=== PATIENT | male | born 1975 | race African-American/Black ===

== ENCOUNTER 2021-06-25 14:55 | Emergency (ER) | payer OTHER, MEDICAID ==
[~2021-06-25] VITALS: Ht 175.3 cm; Wt 145.0 kg
[~2021-06-25 14:55] MED LIST: ALBUTEROL INH; HYDR25TA
[2021-06-25 14:57] VITALS: BP 190/110
== END 2021-06-25 15:23 | disposition left against medical advice (07) ==
LOC: ER 15:01
DX: M25.572 Pain in left ankle and joints of left foot (principal); I10 Essential (primary) hypertension; J45.909 Unspecified asthma, uncomplicated; Z88.0 Allergy status to penicillin; V03.10XA Pedestrian on foot injured in collision with car, pick-up truck or van in traffic accident, initial encounter; Y93.89 Activity, other specified; Y92.488 Other paved roadways as the place of occurrence of the external cause
CPT/HCPCS: 99283